=== PATIENT | female | born 1950 | race Caucasian/White ===

== ENCOUNTER 2016-07-07 08:17 | Emergency (ER) | payer OTHER ==
[~2016-07-07] VITALS: Ht 160 cm; Wt 95.3 kg
[~2016-07-07 08:17] MED LIST: AMLODIPINE BESYL5 M1 PO; ATORVASTATIN CA20 M1 PO; OMEPRAZOLE20 M2 PO; PROBIOTIC1 EACH PO; VIBRAMYCIN100 MG PO
[2016-07-07 08:23] VITALS: BP 129/82
--- NOTE | 2016-07-07 08:36 | ED ANIMAL BITE/WOUND CHECK ---
History of Present Illness General Chief Complaint: Animal/Insect Bite Stated Complaint: CAT BITE Source: patient, old records Exam Limitations: no limitations Vital Signs & Intake/Output Vital Signs & Intake/Output Vital Signs Date Time Temp Pulse Resp B/P B/P Pulse O2 O2 Flow FiO2 Mean Ox Delivery Rate 07/07 0823 97.8 104 20 129/82 98 Room Air Allergies Coded Allergies: ciprofloxacin (From [facility]) (HIVES 07/07/16) Reconcile Medications Amlodipine Besylate 5 MG TABLET 1 TAB PO QPM BP (Reported) Amoxicillin/Potassium Clav (Augmentin 875-125 Tablet) (Unknown Strength) TABLET (Unknown Dose) PO BID ANTIBIOTIC, INFECTION (Reported) Atorvastatin Calcium 20 MG TABLET 1 TAB PO QPM CHOLESTEROL (Reported) Lactobacillus Acidophilus (Probiotic) 10 BILLION CELL CAPSULE 1 CAP PO QPM GI (Reported) Omeprazole 20 MG CAPSULE.DR 1 CAP PO QPM GI (Reported) Triage Note: DAUGHTERS CAT BIT AND SCRATCHED HER ON THURSDAY. SHE WENT TO A WALK IN THURSDAY AND GOT TETANUS SHOT AND AUGMENTIN BUT RIGHT HAND HAS BECOME MORE RED AND PT STATES SHE IS UNABLE TO HOLD ANYTHING IN HER RIGHT HAND. Triage Nurses Notes Reviewed? yes Onset: Abrupt Duration: day(s): (3), better Timing: recent history Injury Environment: home Is Injury an Animal Bite? Yes Animal Type: cat Context of Animal Attack: approached animal Appearance of Animal: appeared well Animal Immunization Status: up to date Observation/Capture: animal known/obs x10 days Severity of Attack: bitten, scratched Severity: mild Severity Numbers: 4 No Modifying Factors: none Associated Symptoms: DENIES HPI: 66-year-old female with history of hypertension high cholesterol presents to the ER for evaluation after stating she was bit and scratched by her daughters cat 3 days ago. Patient states she developed redness pain to wrist the day after. She went to the urgent care 2 dasy ago was given a tetanus and augmentin. She states the redness and pain have improved since starting the antibiotics. No fever chills diaphoresis. She still complaining of mild aching nonradiating pain to the wrist. There are no modifying factors or associated symptoms otherwise the cat is up-to-date on its immunizations.. She is not taken anything for pain and is declining anything offered. (SHERRELL GOLDBERG,MICHELLE) Past History Travel History Traveled to [place] past 21 day No Medical History Any Pertinent Medical History? see below for history Cardiovascular: hypertension, hyperlipidemia Gastrointestinal: GERD Surgical History Surgical History: non-contributory Psychosocial History What is your primary language Lao Tobacco Use: Never used ETOH Use: denies use Illicit Drug Use: denies illicit drug use Family History Hx Contributory? No (MICHELLE LOPEZ) Review of Systems Review of Systems Constitutional: Reports: see HPI. All Other Systems: Reviewed and Negative Comments Review of systems: See HPI, All other systems negative. Constitutional, no chills no fever, no malaise no weight loss HEENT: No visual changes no sore throat no congestion Cardiovascular: No chest pain , no palpitation Skin: SEEHPI Respiratory: No dyspnea no cough no sputum no hemoptysis GI: No nausea no vomiting, no diarrhea, no bloating/constipation : No dysuria No hematuria, Muscle skeletal: No joint pain, no joint swelling, no back pain, no neck pain, Neurologic: no headache Psych: No stress Heme/endocrine: No bruising Immunology: No lymphadenopathy (MICHELLE LOPEZ) Physical Exam Physical Exam General Appearance: well developed/nourished, no apparent distress, alert, awake Comments: Well-developed well-nourished patient in no apparent distress. HEENT: Atraumatic, extraocular motion intact Neck: Supple, FROM Back: FROM Cardiovascular: Regular rate and rhythms no murmurs rubs or gallops, Respiratory: No respiratory distress. Patient speaking in full complete sentences. Breath sounds clear to auscultation bilaterally: NO W/R/R Extremities: full range of motion 5 out of 5 strength noted to bilateral upper extremities. Sensation capillary refills intact Neuro: awake, alert, and oriented to person, place and time. There were no obvious focal neurologic abnormalities. Skin: Warm & dry; there is a 5 x 4 cm area of erythema over the dorsal aspect of the first right metacarpal there is no streaking up the forearm, there are superficial abrasions noted to the volar forearm with no surrounding erythema there is 1 small puncture wound to the distal first carpal, there is no discharge elicited no induration or fluctuance Psych: Mood affect normal, normal memory normal judgment. (MICHELLE LOPEZ) Progress Differential Diagnosis: abscess, cellulitis, joint infection, tenosysnovitis Plan of Care: Orders Procedure Date/time Status Durable Medical Equipment 07/07 0846 Active Patient clinically appears well Unasyn IV ordered patient to follow-up in 48-72 hours for wound check advised she continue with Augmentin, return to ER anytime sooner with any concerns or signs of worsening infection answered all of her questions brace applied to the wrist she is declining anything for pain when offered (MICHELLE LOPEZ) Departure Departure Time of Disposition: 845 Disposition: HOME OR SELF CARE Condition: Stable Clinical Impression Primary Impression: Cellulitis Secondary Impressions: Cat bite Referrals: BALBINA BRADFORD DO (PCP/Family) Additional Instructions: CONTINUE TAKING THE AUGMENTIN PRESCRIBED. RETURN IN 48-72 HOURS FOR WOUND CHECK.RETURN TO THE ER AT ANYTIME SOONER IF YOU DEVELOP FEVER, CHILLS, WORSENING REDNESS OR ANY OTHER CONCERNS. WEAR BRACE NEEDED. TYLENOL OR MOTRIN FOR PAIN Departure Forms: Customer Survey General Discharge Information (MICHELLE LOPEZ) PA/GEOSCIENCES PROFESSOR Co-Sign Statement Statement: ED Attending supervision documentation- [x] I saw and evaluated the patient. I have also reviewed all the pertinent lab results and diagnostic results. I agree with the findings and the plan of care as documented in the PA's/GEOSCIENCES PROFESSOR's documentation. [] I have reviewed the ED Record and agree with the PA's/GEOSCIENCES PROFESSOR's documentation. [] Additions or exceptions (if any) to the PAs/GEOSCIENCES PROFESSOR's note and plan are summarized below: [] (JEM POST DO)
[2016-07-07] MEDS ORDERED: AUGMENTIN 875-1 EACH PO (08:39)
== END 2016-07-07 09:15 ==
LOC: ERH 08:17
DX: S61.451A Open bite of right hand, initial encounter (principal); L03.113 Cellulitis of right upper limb; W55.01XA Bitten by cat, initial encounter
CPT/HCPCS: 96365